=== PATIENT | female | born 1995 | race Two or more races ===

== ENCOUNTER 2021-04-13 16:07 | Emergency (ER) | payer OTHER ==
[~2021-04-13] VITALS: Ht 172.7 cm; Wt 99.7 kg
[~2021-04-13 16:07] MED LIST: IBUP-1222 PO
--- NOTE | 2021-04-13 16:23 | NUR ---
Pt ambulatory to bathroom for UA, steady gait.
[2021-04-13 16:55] LABS: BASOPHILS % (AUTO) 1 % (0-1); EOSINOPHILS % (AUTO) 0 % (1-7); LYMPHOCYTES % (AUTO) 13 % (22-44); MEAN CORPUSCULAR HGB CONC 33.8 g/dL (32.4-35.8); MEAN PLATELET VOLUME 6.7 fL (7.4-10.4); MONOCYTES % (AUTO) 4 % (2-9); NEUTROPHILS % (AUTO) 82 % (42-75); PLATELET COUNT 409 x10^3/uL (130-400); RED BLOOD COUNT 4.21 x10^6/uL (3.82-5.3); RED CELL DISTRIBUTION WIDTH 13.5 % (9.6-15.2)
[2021-04-13 17:06] LABS: MICROSCOPIC INDICATED
[2021-04-13 17:10] LABS: ALANINE AMINOTRANSFERASE 27 U/L (12-78); ANION GAP 6 mmol/L (5-15); CALCIUM 8.4 mg/dL (8.5-10.1); CHLORIDE 107 mmol/L (98-107); CREATININE 0.82 mg/dL (0.55-1.02)
[2021-04-13 17:12] LABS: ALKALINE PHOSPHATASE 126 U/L (45-117); BILIRUBIN,TOTAL 0.4 mg/dL (0.2-1.0); TOTAL PROTEIN 7.6 g/dL (6.4-8.2)
[2021-04-13] MEDS ORDERED: SODIUM CHLORIDE 0.9% 1,000ML IVBOLUS ONE (17:30)
--- NOTE | 2021-04-13 18:01 | NUR ---
This pt reports an uncomplicated vaginal delivery, her first, last week. Pt denies any complications since. Today she took ibuprofen for a VALENZUELA and layed down for a nap. When she awoke, she felt fevers/chills and home temp was 102. Pt c/o intermitent VALENZUELA, denies all other symptoms including those associated with mastitis or UTI. Pt noted to be tachy, this RN inquired with MD Vitale about fluids, ordered and started. Pt denies needs at this time.
[2021-04-13] MEDS ORDERED: CEFTRIAXONE 1,000 MG in DEXTROSE 5% 50 ML IVPB ONE (18:30)
[2021-04-13] MEDS ORDERED: ACETAMINOPHEN 500 MG TABLET ONE (18:43)
[2021-04-13] MEDS ORDERED: ACETAMINOPHEN 500 MG TABLET PO ONE (19:00)
--- NOTE | 2021-04-13 19:12 | NUR ---
Report to TRAC[facility] Prajapati.
[2021-04-13 19:20] VITALS: BP 139/85
--- NOTE | 2021-04-13 19:21 | NUR ---
Patient given discharge instructions and they have confirmed that they understand the instructions. Patient ambulatory with steady gait. NAD, all questions answered appropriately, denies additional needs at this time. No personal belongings left in room after discharge.
== END 2021-04-13 19:25 | disposition home or self-care (01) ==
LOC: ED 19:19
DX: N10 Acute pyelonephritis (principal); R51.9 Headache, unspecified; R50.9 Fever, unspecified
CPT/HCPCS: 36415; 71045; 80053; 81001; 85025; 87086; 96361; 96365; 99284; J0696; J7030